=== PATIENT | female | born 1965 | race Two or more races ===

== ENCOUNTER 2017-10-29 13:06 | Emergency (ER) | payer OTHER ==
[2017-10-29] MEDS ORDERED: IBUPROFEN 800 MG TABLET PO ONE (14:55)
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
[2017-10-29] MEDS ORDERED: CYCLOBENZAPRINE HCL 10 MG TABLET PO ONE (17:01)
[2017-10-29 18:04] VITALS: BP 129/65
== END 2017-10-29 18:04 | disposition home or self-care (01) ==
LOC: ER 13:06
DX: S16.1XXA Strain of muscle, fascia and tendon at neck level, initial encounter (principal); S09.90XA Unspecified injury of head, initial encounter; R51 Headache; M54.2 Cervicalgia; V43.62XA Car passenger injured in collision with other type car in traffic accident, initial encounter; T22.012D Burn of unspecified degree of left forearm, subsequent encounter; X12.XXXD Contact with other hot fluids, subsequent encounter
CPT/HCPCS: 70450; 72125; 99284